=== PATIENT | female | born 1995 | race Caucasian/White ===

== ENCOUNTER 2017-03-17 17:39 | Emergency (ER) | payer BC ==
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
[2017-03-17] MEDS ORDERED: Ketorolac 60 MG/2 ML SDV IM ONE (19:02)
[2017-03-17 21:18] VITALS: BP 136/78
--- NOTE | 2017-03-18 10:01 | US ---
EXAM DATE: 03/17/17 PATIENT'S AGE: 21 Patient: CLARA MORRIS Facility: [place], [place] Site . Site : 1995 Study: US Extremity Venous [id number] 6:32:40 PM Ordering Physician: Doctor Keating Final Report: INDICATION: PAIN BEHIOND LT KNEE DVT VS BAKERS CYST INDICATION: Lower extremity pain and swelling. TECHNIQUE: Ultrasound venous duplex lower left extremity. Compression venous exam was performed using reynolds-scale, color Doppler, and spectral Doppler analysis. COMPARISON: None. FINDINGS: Sonographic imaging demonstrates the left common femoral, deep femoral, superficial femoral, popliteal, posterior tibial and greater saphenous and the contralateral right common femoral veins to be fully compressible with normal color Doppler blood flow. There is no fluid collection identified in the left popliteal fossa. IMPRESSION: No DVT is identified in the left lower extremity. Dictated by Emile Brown MD @ 03/17/2017 7:06:39 PM Dictated by: Emile Brown MD @ 03/17/2017 19:06:53 (Electronic Signature) Report Signed by Proxy. [facility] HOSPITALMarciano
--- NOTE | 2017-03-18 10:04 | CR ---
EXAM DATE: 03/17/17 PATIENT'S AGE: 21 Patient: CLARA MORRIS Facility: [place], [place] Site . Site : 1995 Study: XRay Knee Left [id number]/12/2017 7:02:18 PM Ordering Physician: Doctor Keating Final Report: INDICATION: Knee pain, injury. TECHNIQUE: Knee radiographs 3 views COMPARISON: None FINDINGS: Bones: Alignment is normal. No acute fractures or aggressive osseous lesions seen. Joint spaces: No significant joint effusion is seen. The joint spaces of the medial, lateral, and patellofemoral compartments are unremarkable. Soft tissues: Unremarkable. No radiopaque foreign bodies are noted. IMPRESSION: 1. No acute osseous injuries are identified. Dictated by Cesar Parada MD @ 03/17/2017 7:35:15 PM Dictated by: Cesar Parada MD @ 03/17/2017 19:35:21 (Electronic Signature) Report Signed by Proxy. KATHIE
== END 2017-03-17 19:55 | disposition home or self-care (01) ==
LOC: MW.ED 17:39
DX: M25.562 Pain in left knee (principal); V18.0XXA Pedal cycle driver injured in noncollision transport accident in nontraffic accident, initial encounter
CPT/HCPCS: 73562; 93971; 96372; 99284; J1885; 99282

== ENCOUNTER 2017-10-11 09:47 | Emergency (ER) | payer BC ==
[2017-10-11] MEDS ORDERED: Sodium Chloride 0.9% 2.5 ML Syringe FLUSH PRN (09:58)
[2017-10-11] MEDS ORDERED: Sodium Chloride 0.9% 10 ML Syringe FLUSH PRN (09:58)
--- NOTE | 2017-10-11 10:30 | EDM.PDOC ---
ED HPI GENERAL MEDICAL PROBLEM - General Chief Complaint: CRAB FISHER Problem Stated Complaint: BLEEDING AT 14WKS Time Seen by Provider: 10/11/17 09:49 Source of Information: Reports: Patient History Limitations: Reports: No Limitations - History of Present Illness INITIAL COMMENTS - FREE TEXT/NARRATIVE: History of present illness: []Patient is 14 weeks and has been bleeding since early this morning. When she got up she felt a gush of blood which is abnormal. She states there was no tissue or clots. Patient states she has cramping on the right pelvis that is new. She is followed by Dr. Jasmina Jones has had a ultrasound in this documenting IUP. Patient denies any dizziness lightheadedness fevers, chills or diarrhea. Review of systems: As per history of present illness and below otherwise all systems reviewed and negative. Past medical history: As per history of present illness and as reviewed below otherwise noncontributory. Surgical history: As per history of present illness and as reviewed below otherwise noncontributory. Social history: No reported history of drug or alcohol abuse. Family history: As per history of present illness and as reviewed below otherwise noncontributory. Physical exam: General: Well developed, well nourished in NAD HEENT: Atraumatic, normocephalic, pupils reactive, negative for conjunctival pallor or scleral icterus, mucous membranes moist, throat clear, neck supple, nontender, trachea midline. Lungs: Clear to auscultation, breath sounds equal bilaterally, chest nontender. Heart: S1S2, regular, negative for clicks, rubs, or JVD. Abdomen: Soft, nondistended, nontender. Negative for masses or hepatosplenomegaly. Negative for costovertebral tenderness. Pelvis: Stable nontender. Genitourinary: Deferred. Rectal: Deferred. Extremities: Atraumatic, negative for cords or calf pain. Neurovascular unremarkable. Neuro: Awake, alert, oriented. Cranial nerves II through XII unremarkable. Cerebellum unremarkable. Motor and sensory unremarkable throughout. Exam nonfocal. Diagnostics: []CBC with H&H of . Ultrasound shows a single IUP with gestational age of 15 weeks and 2 days, heart tones 155, normal amniotic fluid volume and suspected central previa, UA negative Therapeutics: [] Impression: []Placenta previa, threatened AB Plan: []Follow-up with Dr. Fortune return if any symptoms worsen or change Definitive disposition and diagnosis as appropriate pending reevaluation and review of above. Pelvic Pain Score (Numeric/FACES): 3 - Related Data Allergies Allergy/AdvReac Type Severity Reaction Status Date / Time No Known Allergies Allergy Verified 10/11/17 10:03 Home Meds: Home Meds . [No Known Home Meds] 03/17/17 [History] Past Medical History - Past Health History Medical/Surgical History: Denies Medical/Surgical History - Infectious Disease History Infectious Disease History: Reports: Chicken Pox Social & Family History - Family History Family Medical History: Noncontributory Cardiac: Reports: Hypertension Endocrine/Metabolic: Reports: Diabetes, type II - Tobacco Use Smoking Status *Q: Never Smoker Years of Tobacco use: 1 Packs/Tins Daily: 0.1 Second Hand Smoke Exposure: No - Alcohol Use Days Per Week of Alcohol Use: 2 Number of Drinks Per Day: 2 Total Drinks Per Week: 4 - Recreational Drug Use Recreational Drug Use: No ED ROS GENERAL - Review of Systems Review Of Systems: See Below (See history of present illness) ED EXAM - Physical Exam Exam: See Below (See history of present illness) Course - Vital Signs Last Recorded V/S: Last Vital Signs Temp 98.4 F 10/11/17 11:27 Pulse 102 H 10/11/17 11:27 Resp 18 10/11/17 11:27 BP 145/87 H 10/11/17 11:27 Pulse Ox 99 10/11/17 11:27 - Orders/Labs/Meds Orders: Active Orders 24 hr Category Date Time Status OB Transvaginal [US] Stat Exams 10/11/17 09:58 Taken UA W/MICROSCOPIC [URIN] Stat Lab 10/11/17 11:24 Ordered Sodium Chloride 0.9% [Saline Flush] Med 10/11/17 09:58 Active 10 ml FLUSH ASDIRECTED PRN Sodium Chloride 0.9% [Saline Flush] Med 10/11/17 09:58 Active 2.5 ml FLUSH ASDIRECTED PRN Saline Lock Insert [OM.PC] Stat Oth 10/11/17 09:58 Ordered Medication Orders Sodium Chloride (Saline Flush) 10 ml FLUSH ASDIRECTED PRN PRN Reason: Keep Vein Open Sodium Chloride (Saline Flush) 2.5 ml FLUSH ASDIRECTED PRN PRN Reason: Keep Vein Open Labs: Laboratory Tests 10/11/17 10/11/17 10/11/17 Range/Units 10:12 10:12 11:24 WBC 11.31 H (4.0-11.0) K/uL RBC 4.25 L (4.30-5.90) M/uL Hgb 11.9 L (12.0-16.0) g/dL Hct 35.5 L (36.0-46.0) % MCV 83.5 (80.0-98.0) fL MCH 28.0 (27.0-32.0) pg MCHC 33.5 (31.0-37.0) g/dL RDW Std Deviation 37.9 (28.0-62.0) fl RDW Coeff of [place] 13 (11.0-15.0) % Plt Count 278 (150-400) K/uL MPV 10.20 (7.40-12.00) fL Neut % (Auto) 68.3 (48.0-80.0) % Lymph % (Auto) 26.3 (16.0-40.0) % [place] % (Auto) 4.2 (0.0-15.0) % Eos % (Auto) 0.9 (0.0-7.0) % Baso % (Auto) 0.3 (0.0-1.5) % Neut # (Auto) 7.7 H (1.4-5.7) K/uL Lymph # (Auto) 3.0 H (0.6-2.4) K/uL [place] # (Auto) 0.5 (0.0-0.8) K/uL Eos # (Auto) 0.1 (0.0-0.7) K/uL Baso # (Auto) 0.0 (0.0-0.1) K/uL Nucleated RBC % 0.0 /100WBC Nucleated RBCs # 0 K/uL Urine Color YELLOW Urine Appearance CLEAR Urine pH 5.5 (5.0-8.0) Ur Specific [place] >= 1.030 (1.001-1.035) Urine Protein NEGATIVE (NEGATIVE) mg/dL Urine Glucose (UA) NEGATIVE (NEGATIVE) mg/dL Urine Ketones NEGATIVE (NEGATIVE) mg/dL Urine Occult Blood MODERATE (NEGATIVE) Urine Nitrite NEGATIVE (NEGATIVE) Urine Bilirubin NEGATIVE (NEGATIVE) Urine Urobilinogen 0.2 (<2.0) EU/dL Ur Leukocyte Esterase NEGATIVE (NEGATIVE) Urine RBC 4-6 (0-2/HPF) Urine WBC 1-3 (0-5/HPF) Ur Epithelial Cells FEW (NONE-FEW) Urine Bacteria FEW (NEGATIVE) Blood Type B POSITIVE Meds: Medications Generic Name Dose Route Start Last Admin Trade Name Freq PRN Reason Stop Dose Admin Sodium Chloride 10 ml 10/11/17 09:58 Saline Flush FLUSH ASDIRECTED PRN Keep Vein Open Sodium Chloride 2.5 ml 10/11/17 09:58 Saline Flush FLUSH ASDIRECTED PRN Keep Vein Open Departure - Departure Time of Disposition: 11:51 Disposition: Home, Self-Care 01 Condition: Good Clinical Impression: Placenta previa antepartum, Vaginal bleeding during - Discharge Information Referrals: PCP,None [Primary Care Provider] - Forms: ED Department Discharge Additional Instructions: The following information is given to patients seen in the emergency department who are being discharged to home. This information is to outline your options for follow-up care. We provide all patients seen in our emergency department with a follow-up referral. The need for follow-up, as well as the timing and circumstances, are variable depending upon the specifics of your emergency department visit. If you don't have a primary care physician on staff, we will provide you with a referral. We always advise you to contact your personal physician following an emergency department visit to inform them of the circumstance of the visit and for follow-up with them and/or the need for any referrals to a consulting specialist. The emergency department will also refer you to a specialist when appropriate. This referral assures that you have the opportunity for follow-up care with a specialist. All of these measure are taken in an effort to provide you with optimal care, which includes your follow-up. Under all circumstances we always encourage you to contact your private physician who remains a resource for coordinating your care. When calling for follow-up care, please make the office aware that this follow-up is from your recent emergency room visit. If for any reason you are refused follow-up, please contact the [facility] Emergency Department at and asked to speak to the emergency department charge nurse. Return if any symptoms worsen or change, follow-up with Dr. Tong MCKINLEY [facility] [address] [place] [id number] - My Orders Last 24 Hours: My Active Orders 10/11/17 09:58 OB Transvaginal [US] Stat Sodium Chloride 0.9% [Saline Flush] 10 ml FLUSH ASDIRECTED PRN Sodium Chloride 0.9% [Saline Flush] 2.5 ml FLUSH ASDIRECTED PRN Saline Lock Insert [OM.PC] Stat 10/11/17 11:24 UA W/MICROSCOPIC [URIN] Stat - Assessment/Plan Last 24 Hours: My Active Orders 10/11/17 09:58 OB Transvaginal [US] Stat Sodium Chloride 0.9% [Saline Flush] 10 ml FLUSH ASDIRECTED PRN Sodium Chloride 0.9% [Saline Flush] 2.5 ml FLUSH ASDIRECTED PRN Saline Lock Insert [OM.PC] Stat 10/11/17 11:24 UA W/MICROSCOPIC [URIN] Stat
[2017-10-11 13:42] VITALS: BP 139/81
--- NOTE | 2017-10-12 14:21 | US ---
EXAM DATE: 10/11/17 PATIENT'S AGE: 22 Patient: CLARA GOODMAN Facility: [place], [place] Site . Site : 1995 Study: US OB Pelvis [id number]/8/2018 10:47:00 AM Ordering Physician: Rodger Clifton Final Report: INDICATION: ABD PAIN/VAGINAL BLEEDING Indication: Abdominal pain/vaginal bleeding. Technique: obstetric ultrasound. Comparison: None. Findings: There is a small amount of fluid in the cervix, with soft tissue covering the internal cervical os. These findings are suspicious for placenta previa. Followup imaging is suggested to assess for fundal migration. The cervix measures 4.7 cm in length. There is no prolapse of parts or funneling identified. Cardiac activity by M-mode ultrasound is 155 beats per minute. A formal anatomic survey was not performed. Subjectively, amniotic fluid volume is within normal limits. Measurements are as follows: Biparietal diameter: 29 millimeters, corresponding to gestational age of 15 weeks, 3 days. Head circumference: 106 millimeters, corresponding to a gestational age of 15 weeks, 1 day. Abdominal circumference: 92 millimeters, corresponding to gestational age of 15 weeks, 3 days. Femur length: 17 millimeters, corresponding to gestational age of 15 weeks, 0 days. The HC/AC ratio is 1.16. The normal range is 1.14 to 1.31. The ultrasound gestational age today is 15 weeks II days, corresponding to an ultrasound EDC of 04/02/2018. Estimated weight is 115 grams (+/-17 grams). This places the fetus at the 90th percentile for LMP. Impression: 1. Single living intrauterine fetus, with an ultrasound gestational age today of 15 weeks, 2 days, corresponding to an ultrasound EDC of 04/02/2018. 2. Subjectively, amniotic fluid volume is within normal limits. 3. Suspected placenta previa. Sonographic and clinical followup are advised to assess for fundal migration. Dictated by Emile Brown MD @ 10/11/2017 11:01:57 AM Dictated by: Emile Brown MD @ 10/11/2017 11:02:13 (Electronic Signature) Report Signed by Proxy. KATHIE
== END 2017-10-11 12:20 | disposition home or self-care (01) ==
LOC: MW.ED 09:47
DX: O20.0 Threatened abortion (principal); O44.11 Complete placenta previa with hemorrhage, first trimester; Z3A.14 14 weeks gestation of pregnancy
CPT/HCPCS: 36415; 76817; 76817-26; 81001; 85025; 86900; 86901; 99283; 99284-25

== ENCOUNTER 2018-03-20 02:40 | Inpatient (IN) | payer OTHER, BC ==
[2018-03-20] MEDS ORDERED: Butorphanol 1 MG/ML SDV IM ONE (04:05)
[2018-03-20] MEDS ORDERED: Methylergonovine 0.2 MG/1 ML Amp IM PRN (05:10)
[2018-03-20] MEDS ORDERED: Misoprostol 200 MCG Tab PO PRN (05:10)
[2018-03-20] MEDS ORDERED: Tranexamic Acid 1,000 MG in Sodium Chloride 0.9% 100 ML IV PRN (05:10)
[2018-03-20] MEDS ORDERED: Sodium Chloride 0.9% 10 ML Syringe FLUSH PRN (05:10)
[2018-03-20] MEDS ORDERED: Lidocaine 1% 50 ML MDV INJECT PRN (05:10)
[2018-03-20] MEDS ORDERED: Nalbuphine 10 MG/1 ML Vial IVPUSH PRN (05:10)
[2018-03-20] MEDS ORDERED: Water For Irrigation,Sterile 1,000 ML Container IRR PRN (05:10)
[2018-03-20] MEDS ORDERED: Sodium Chloride 0.9% 2.5 ML Syringe FLUSH PRN (05:10)
[2018-03-20] MEDS ORDERED: Carboprost Tromethamine 250 MCG/1 ML Amp IM PRN (05:10)
[2018-03-20] MEDS ORDERED: Oxytocin/0.9 % Sodium Chloride 30 UNIT/500 ML BAG IV SCH (05:15)
[2018-03-20] MEDS: Butorphanol 1 MG/ML SDV IVPUSH PRN ×2 (05:27→07:32)
[2018-03-20] MEDS: Lactated Ringers 1,000 ML IV SCH ×2 (05:28→07:22)
[2018-03-20] MEDS ORDERED: fentaNYL 100 MCG/2 ML SDV ONE (08:17)
[2018-03-20] MEDS ORDERED: Ropivacaine HCl/PF 100 ML ONE (08:17)
--- NOTE | 2018-03-20 08:28 | PCM.LDHP ---
L&D History of Present Illness - General Date of Service: 03/20/18 Admit Problem/Dx: Patient Status Order with Admit Dx/Problem 03/20/18 03:05 Patient Status [ADT] Routine 03/20/18 05:14 Patient Status [ADT] Routine Admission Diagnosis/Problem Admission Diagnosis/Problem Source of Information: Patient History Limitations: Reports: No Limitations - History of Present Illness Pain Score: 9 Improves with: Reports: None Worsens with: Reports: None Associated Symptoms: Reports: N - Related Data Allergies/Adverse Reactions: Allergies Allergy/AdvReac Type Severity Reaction Status Date / Time No Known Allergies Allergy Verified 10/11/17 10:03 Home Medications: Home Meds Acetaminophen [Tylenol Extra Strength] 1,000 mg PO Q6H PRN 03/08/18 [History] Vit #76/Iron,Carb/Fa [Pnv 29-1 Tablet] 1 tab PO DAILY 03/08/18 [History ] Past Medical History - Past Health History Medical/Surgical History: Denies Medical/Surgical History Respiratory History: Reports: Asthma CARDIOLOGY MANAGER History: Reports: - Infectious Disease History Infectious Disease History: Reports: Chicken Pox Social & Family History - Family History Family Medical History: Noncontributory Cardiac: Reports: Hypertension Endocrine/Metabolic: Reports: Diabetes, type II - Tobacco Use Used Tobacco, but Quit: No Second Hand Smoke Exposure: No - Recreational Drug Use Recreational Drug Use: No H&P Review of Systems - Review of Systems: Review Of Systems: See Below General: Reports: No Symptoms HEENT: Reports: No Symptoms Pulmonary: Reports: No Symptoms Cardiovascular: Reports: No Symptoms Gastrointestinal: Reports: No Symptoms Genitourinary: Reports: No Symptoms Musculoskeletal: Reports: No Symptoms Skin: Reports: No Symptoms Psychiatric: Reports: No Symptoms Neurological: Reports: No Symptoms Hematologic/Lymphatic: Reports: No Symptoms Immunologic: Reports: No Symptoms L&D Exam - Exam Exam: See Below - Vital Signs Weight: 128.82 kg - OB Specific Contraction Intensity: Moderate Movement: Active Heart Tones: Present Presentation: Vertex - Marie Score Marie Score Cervix Position: Anterior Marie Score Consistency: Soft Marie Score Effacement: >80% Marie Score Dilation: > 5 cm Marie Score 's Station: -1 ,0 Marie Score Total: 12 - Exam General: Alert, Oriented HEENT: PERRLA, Conjunctiva Clear, EACs Clear, EOMI, Hearing Intact, Mucosa Moist & Hoyt, Nares Patent, Normal Nasal Septum, Posterior Pharynx Clear, TMs Clear Neck: Supple, Trachea Midline Lungs: Clear to Auscultation, Normal Respiratory Effort Cardiovascular: Regular Rate, Regular Rhythm GI/Abdominal Exam: Normal Bowel Sounds, Soft, Non-Tender, No Organomegaly, No Distention, No Abnormal Bruit, No Mass, Pelvis Stable Rectal Exam: Normal Exam, Normal Rectal Tone Genitourinary: Normal external exam, Normal bimanual exam, Normal speculum exam Back Exam: Normal Inspection, Full Range of Motion Extremities: Normal Inspection, Normal Range of Motion, Non-Tender, No Pedal Edema, Normal Capillary Refill Skin: Warm, Dry, Intact Neurological: Cranial Nerves Intact, Reflexes Equal Bilateral Psychiatric: Alert, Normal Affect, Normal Mood - Patient Data Lab Results Last 24 hrs: Laboratory Results - last 24 hr 03/20/18 03/20/18 Range/Units 05:27 05:27 WBC 15.67 H (4.0-11.0) K/uL RBC 4.55 (4.30-5.90) M/uL Hgb 12.5 (12.0-16.0) g/dL Hct 37.5 (36.0-46.0) % MCV 82.4 (80.0-98.0) fL MCH 27.5 (27.0-32.0) pg MCHC 33.3 (31.0-37.0) g/dL RDW Std Deviation 41.8 (28.0-62.0) fl RDW Coeff of Roshni 14 (11.0-15.0) % Plt Count 278 (150-400) K/uL MPV 11.30 (7.40-12.00) fL Nucleated RBC % 0.0 /100WBC Nucleated RBCs # 0 K/uL Blood Type B POSITIVE Antibody Screen NEGATIVE Result Diagrams: 03/20/18 05:27 Problem List Initiated/Reviewed/Updated: Yes Orders Last 24hrs: Active Orders 24 hr Category Date Time Status Patient Status [ADT] Routine ADT 03/20/18 03:05 Active Patient Status [ADT] Routine ADT 03/20/18 05:14 Active May Shower [RC] ASDIRECTED Care 03/20/18 05:14 Active Notify Provider [RC] PRN Care 03/20/18 05:14 Active Up ad Kalie [RC] ASDIRECTED Care 03/20/18 03:05 Active Vital Signs [RC] PER UNIT ROUTINE Care 03/20/18 03:05 Active Vital Signs [RC] PER UNIT ROUTINE Care 03/20/18 05:14 Active Butorphanol [Stadol] Med 03/20/18 05:10 Active 1 mg IVPUSH Q1H PRN Carboprost Tromethamine [Hemabate DS] Med 03/20/18 05:10 Active 250 mcg IM ASDIRECTED PRN Lactated Ringers [Ringers, Lactated] 1,000 ml Med 03/20/18 05:15 Active IV ASDIRECTED Lidocaine 1% [Xylocaine 1%] Med 03/20/18 05:10 Active 50 ml INJECT ONETIME PRN Methylergonovine [Methergine] Med 03/20/18 05:10 Active 0.2 mg IM ASDIRECTED PRN Nalbuphine [Nubain] Med 03/20/18 05:10 Active 10 mg IVPUSH Q1H PRN Oxytocin/0.9 % Sodium Chloride [Oxytocin 30 Unit/500 ML Med 03/20/18 05:15 Active -NS] 30 unit in 500 ml IV TITRATE Sodium Chloride 0.9% [Saline Flush] Med 03/20/18 05:10 Active 10 ml FLUSH ASDIRECTED PRN Sodium Chloride 0.9% [Saline Flush] Med 03/20/18 05:10 Active 2.5 ml FLUSH ASDIRECTED PRN Tranexamic Acid [Cyklokapron] 1,000 mg Med 03/20/18 05:10 Active Sodium Chloride 0.9% [Normal Saline] 100 ml IV ONETIME Water For Irrigation,Sterile [Sterile Water for Med 03/20/18 05:10 Active Irrigation] 1,000 ml IRR ASDIRECTED PRN miSOPROStol [Cytotec] Med 03/20/18 05:10 Active 200 mcg PO ONETIME PRN Scalp Electrode [WOMSER] Per Unit Routine Oth 03/20/18 05:14 Ordered Peripheral IV Insertion Adult [OM.PC] Routine Oth 03/20/18 05:14 Ordered Resuscitation Status Routine Resus Stat 03/20/18 03:05 Ordered Medication Orders Butorphanol Tartrate (Stadol) 1 mg IVPUSH Q1H PRN PRN Reason: Pain Last Admin: 03/20/18 07:32 Dose: 1 mg Admin: 03/20/18 05:27 Dose: 1 mg Carboprost Tromethamine (Hemabate Ds) 250 mcg IM ASDIRECTED PRN PRN Reason: Post Hemorrhage Tranexamic Acid 1,000 mg/ (Sodium Chloride) 110 mls @ 660 mls/hr IV ONETIME PRN PRN Reason: Bleeding Lactated Ringer's (Ringers, Lactated) 1,000 mls @ 150 mls/hr IV ASDIRECTED [place] Last Admin: 03/20/18 07:22 Dose: 500 mls/hr Infusion: 03/20/18 06:29 Dose: 999 mls/hr Admin: 03/20/18 05:28 Dose: 999 mls/hr Oxytocin/Sodium Chloride (Oxytocin 30 Unit/500 Ml-Ns) 30 unit in 500 mls @ 500 mls/hr IV TITRATE [facility] Lidocaine HCl (Xylocaine 1%) 50 ml INJECT ONETIME PRN PRN Reason: Laceration repair Methylergonovine Maleate (Methergine) 0.2 mg IM ASDIRECTED PRN PRN Reason: Post Hemorrhage Misoprostol (Cytotec) 200 mcg PO ONETIME PRN PRN Reason: Post Hemorrhage Nalbuphine HCl (Nubain) 10 mg IVPUSH Q1H PRN PRN Reason: Pain (severe 7-10) Sodium Chloride (Saline Flush) 10 ml FLUSH ASDIRECTED PRN PRN Reason: Keep Vein Open Sodium Chloride (Saline Flush) 2.5 ml FLUSH ASDIRECTED PRN PRN Reason: Keep Vein Open Sterile Water (Sterile Water For Irrigation) 1,000 ml IRR ASDIRECTED PRN PRN Reason: delivery Assessment/Plan Comment:: IUP term in active labor.
--- NOTE | 2018-03-20 08:40 | PCM.PREANE ---
Preanesthetic Assessment - Anesthesia/Transfusion/Family Hx Anesthesia History: Prior Anesthesia Without Reaction Family History of Anesthesia Reaction: No Transfusion History: No Prior Transfusion(s) - Review of Systems General: No Symptoms Pulmonary: No Symptoms Cardiovascular: No Symptoms Gastrointestinal: No Symptoms Neurological: No Symptoms - Physical Assessment NPO Status Date: 03/20/18 NPO Status Time: 01:00 Height: 1.57 m Weight: 128.82 kg ASA Class: 2 Mental Status: Alert & Oriented x3 Dentition: Reports: Normal Dentition - Lab Values: Laboratory Last Values WBC 15.67 K/uL (4.0-11.0) H 03/20/18 05:27 RBC 4.55 M/uL (4.30-5.90) 03/20/18 05:27 Hgb 12.5 g/dL (12.0-16.0) 03/20/18 05:27 Hct 37.5 % (36.0-46.0) 03/20/18 05:27 MCV 82.4 fL (80.0-98.0) 03/20/18 05:27 MCH 27.5 pg (27.0-32.0) 03/20/18 05:27 MCHC 33.3 g/dL (31.0-37.0) 03/20/18 05:27 RDW Std Deviation 41.8 fl (28.0-62.0) 03/20/18 05:27 RDW Coeff of Roshni 14 % (11.0-15.0) 03/20/18 05:27 Plt Count 278 K/uL (150-400) 03/20/18 05:27 MPV 11.30 fL (7.40-12.00) 03/20/18 05:27 Nucleated RBC % 0.0 /100WBC 03/20/18 05:27 Nucleated RBCs # 0 K/uL 03/20/18 05:27 Blood Type B POSITIVE 03/20/18 05:27 Antibody Screen NEGATIVE 03/20/18 05:27 - Allergies Allergies/Adverse Reactions: Allergies Allergy/AdvReac Type Severity Reaction Status Date / Time No Known Allergies Allergy Verified 10/11/17 10:03 - Acknowledgements Anesthesia Type Planned: Epidural Pt an Appropriate Candidate for the Planned Anesthesia: Yes Alternatives and Risks of Anesthesia Discussed w Pt/Guardian: Yes Pt/Guardian Understands and Agrees with Anesthesia Plan: Yes PreAnesthesia Questionnaire - Past Health History Medical/Surgical History: Denies Medical/Surgical History Respiratory History: Reports: Asthma [employer] History: Reports: - Infectious Disease History Infectious Disease History: Reports: Chicken Pox - SUBSTANCE USE Tobacco Use Within Last Twelve Months: No Second Hand Smoke Exposure: No Recreational Drug Use History: No - HOME MEDS Home Medications: Home Meds Acetaminophen [Tylenol Extra Strength] 1,000 mg PO Q6H PRN 03/08/18 [History] Vit #76/Iron,Carb/Fa [Pnv 29-1 Tablet] 1 tab PO DAILY 03/08/18 [History ] - CURRENT (IN HOUSE) MEDS Current Meds: Current Medications Butorphanol Tartrate (Stadol) 1 mg IVPUSH Q1H PRN PRN Reason: Pain Last Admin: 03/20/18 07:32 Dose: 1 mg Carboprost Tromethamine (Hemabate Ds) 250 mcg IM ASDIRECTED PRN PRN Reason: Post Hemorrhage Tranexamic Acid 1,000 mg/ (Sodium Chloride) 110 mls @ 660 mls/hr IV ONETIME PRN PRN Reason: Bleeding Lactated Ringer's (Ringers, Lactated) 1,000 mls @ 150 mls/hr IV ASDIRECTED [place] Last Admin: 03/20/18 07:22 Dose: 500 mls/hr Oxytocin/Sodium Chloride (Oxytocin 30 Unit/500 Ml-Ns) 30 unit in 500 mls @ 500 mls/hr IV TITRATE [place] Lidocaine HCl (Xylocaine 1%) 50 ml INJECT ONETIME PRN PRN Reason: Laceration repair Methylergonovine Maleate (Methergine) 0.2 mg IM ASDIRECTED PRN PRN Reason: Post Hemorrhage Misoprostol (Cytotec) 200 mcg PO ONETIME PRN PRN Reason: Post Hemorrhage Nalbuphine HCl (Nubain) 10 mg IVPUSH Q1H PRN PRN Reason: Pain (severe 7-10) Sodium Chloride (Saline Flush) 10 ml FLUSH ASDIRECTED PRN PRN Reason: Keep Vein Open Sodium Chloride (Saline Flush) 2.5 ml FLUSH ASDIRECTED PRN PRN Reason: Keep Vein Open Sterile Water (Sterile Water For Irrigation) 1,000 ml IRR ASDIRECTED PRN PRN Reason: delivery Discontinued Medications Butorphanol Tartrate (Stadol) 1 mg IM ONETIME ONE Stop: 03/20/18 04:06 Last Admin: 03/20/18 04:15 Dose: 1 mg Fentanyl (Sublimaze) Confirm Administered Dose 100 mcg .ROUTE .STK-MED ONE Stop: 03/20/18 08:18 Ropivacaine (Naropin 0.2%) Confirm Administered Dose 100 mls @ as directed .ROUTE .STK-MED ONE Stop: 03/20/18 08:18
--- NOTE | 2018-03-20 08:45 | PCM.PRNOTE ---
- Free Text/Narrative Note: Anes Note Patietn requests epidural for L&D. Sitting position. Chloroprep to lumbar area. Sterile fenestrated drape applied. Sterile technique. Level L3-L4, midline approach. Local 1% lido, epidural space easily achieved single attempt using ELMA technique. ELMA note at 5 cm. Epidural cath threaded 5 cm with ease. Sterile dressing applied. Test dose negative. Loading dose 10 cc 0.2% ropivicaine with 1 mcg/cc fentanyl in slow divided doses. Pump started with same solution at 8 cc hr with 6 cc q 20 min prn bolus. Brad Ace API PRODUCT MANAGER Time with patient 0825 to 0900
[2018-03-20] MEDS ORDERED: oxyCODONE 5 MG Tab PO PRN (10:06)
[2018-03-20] MEDS ORDERED: Benzocaine/Menthol 20%-0.5% Spray 78 GM Cannister TOP PRN (10:06)
[2018-03-20] MEDS ORDERED: Docusate Sodium 100 MG Cap PO PRN (10:06)
[2018-03-20] MEDS ORDERED: Ibuprofen 400 MG Tab PO PRN (10:06)
[2018-03-20] MEDS ORDERED: Bisacodyl 10 MG Supp RECTAL PRN (10:06)
[2018-03-20] MEDS ORDERED: Lanolin 100% Cream 7 GM Tube TOP PRN (10:06)
[2018-03-20] MEDS ORDERED: Acetaminophen 500 MG Tab PO PRN (10:06)
[2018-03-20] MEDS ORDERED: Witch Hazel Medicated Pads 40/Jar TOP PRN (10:06)
--- NOTE | 2018-03-20 12:40 | OR ---
SURGEON: Justin Fortune MD DATE OF PROCEDURE: 03/20/2018 Ms. Saha is 22. She is para 1-0-0-1, she is followed in our clinic primarily by me. She is term. She is admitted early of March 20 in active labor. Her GBS status is negative. At the time of admission, she was 5 cm complete vertex, -1 with intact bag of water, ruptured her membrane at 8:00 in the morning and it was clear fluid. At that time, she was 6 cm complete vertex and zero station. She had epidural anesthesia for labor analgesia. heart rate was category I. The patient continued to progress at the end when she became complete she have deceleration due to descend and she was able to accomplish a normal spontaneous vaginal delivery of a male fetus. Nuchal cord x1 was noted. The fetus was suctioned and dried and cried, and the score reported to be 7 and 9. The weight is not available. The placenta delivered spontaneous, complete, and intact without any problem and there was no need for episiotomy. There was no perineal or labial laceration. Estimated blood loss was 250 to 300 mL. There was no complication in this labor and . WENDY / INGA /[id number]
[2018-03-20] MEDS: Ibuprofen 800 MG Tab PO PRN (15:00)
[2018-03-20] MEDS: Acetaminophen 500 MG Tab PO PRN (17:08)
[2018-03-21] MEDS: Ibuprofen 800 MG Tab PO PRN (00:07)
--- NOTE | 2018-03-21 05:37 | PCM.POSTAN ---
POST ANESTHESIA ASSESSMENT - RESPIRATORY Respiratory Status: Respiratory Rate WNL - CARDIOVASCULAR CV Status: Pulse Rate WNL - GASTROINTESTINAL GI Status: No Symptoms - POST OP HYDRATION Hydration Status: Adequate & Stable
--- NOTE | 2018-03-21 05:38 | PCM48HPAN ---
Post Anesthesia Note - EVALUATION WITHIN 48HRS OF ANESTHETIC Vital Signs in Normal Range: Yes Patient Participated in Evaluation: Yes Respiratory Function Stable: Yes Airway Patent: Yes Cardiovascular Function Stable: Yes Hydration Status Stable: Yes Pain Control Satisfactory: Yes Nausea and Vomiting Control Satisfactory: Yes Mental Status Recovered: Yes Resp Rate: 16
[2018-03-21 07:57] VITALS: BP 129/85
[2018-03-21] MEDS: Acetaminophen 500 MG Tab PO PRN (10:16)
--- NOTE | 2018-03-21 11:19 | PCM.DCSUM1 ---
Discharge Summary - Hospital Course Diagnosis: Stroke: No - Discharge Data Discharge Date: 03/21/18 Discharge Disposition: Home, Self-Care 01 Condition: Good - Patient Instructions Diet: Usual Diet as Tolerated Activity: As Tolerated Driving: Do Not Drive Showering/Bathing: May Shower Notify Provider of: Fever, Increased Pain, Nausea and/or Vomiting - Discharge Plan Home Medications: Home Meds Acetaminophen [Tylenol Extra Strength] 1,000 mg PO Q6H PRN 03/08/18 [History] Vit #76/Iron,Carb/Fa [Pnv 29-1 Tablet] 1 tab PO DAILY 03/08/18 [History ] - General Info Date of Service: 03/21/18 Functional Status: Reports: Pain Controlled - Review of Systems General: Reports: No Symptoms HEENT: Reports: No Symptoms Pulmonary: Reports: No Symptoms Cardiovascular: Reports: No Symptoms Gastrointestinal: Reports: No Symptoms Genitourinary: Reports: No Symptoms Musculoskeletal: Reports: No Symptoms Skin: Reports: No Symptoms Neurological: Reports: No Symptoms Psychiatric: Reports: No Symptoms - Patient Data Vitals - Most Recent: Last Vital Signs Temp 36.6 C 03/21/18 07:40 Pulse 79 03/21/18 07:40 Resp 18 03/21/18 07:40 BP 129/85 03/21/18 07:40 Pulse Ox 99 03/21/18 07:40 Weight - Most Recent: 128.82 kg Lab Results - Last 24 hrs: Laboratory Results - last 24 hr 03/21/18 Range/Units 06:00 Hgb 11.0 L (12.0-16.0) g/dL Hct 34.3 L (36.0-46.0) % Med Orders - Current: Current Medications Acetaminophen (Tylenol Extra Strength) 500 mg PO Q4H PRN PRN Reason: Pain Acetaminophen (Tylenol Extra Strength) 1,000 mg PO Q4H PRN PRN Reason: Pain Last Admin: 03/21/18 10:16 Dose: 1,000 mg Benzocaine/Menthol (Dermoplast Pain Relief 20%-0.5% [place]) 78 gm TOP ASDIRECTED PRN PRN Reason: Perineal Comfort Measure Bisacodyl (Dulcolax) 10 mg RECTAL ONETIME PRN PRN Reason: Constipation Butorphanol Tartrate (Stadol) 1 mg IVPUSH Q1H PRN PRN Reason: Pain Last Admin: 03/20/18 07:32 Dose: 1 mg Carboprost Tromethamine (Hemabate Ds) 250 mcg IM ASDIRECTED PRN PRN Reason: Post Hemorrhage Docusate Sodium (Colace) 100 mg PO BID PRN PRN Reason: Constipation Emollient Ointment (Lansinoh Hpa) 0 gm TOP ASDIRECTED PRN PRN Reason: Sore Nipples Last Admin: 03/20/18 17:11 Dose: 1 tube Tranexamic Acid 1,000 mg/ (Sodium Chloride) 110 mls @ 660 mls/hr IV ONETIME PRN PRN Reason: Bleeding Lactated Ringer's (Ringers, Lactated) 1,000 mls @ 150 mls/hr IV ASDIRECTED [place] Last Admin: 03/20/18 07:22 Dose: 500 mls/hr Oxytocin/Sodium Chloride (Oxytocin 30 Unit/500 Ml-Ns) 30 unit in 500 mls @ 500 mls/hr IV TITRATE [facility] Last Admin: 03/20/18 10:00 Dose: 999 mls/hr Ibuprofen (Motrin) 400 mg PO Q4H PRN PRN Reason: Pain Ibuprofen (Motrin) 800 mg PO Q6H PRN PRN Reason: Pain Last Admin: 03/21/18 00:07 Dose: 800 mg Lidocaine HCl (Xylocaine 1%) 50 ml INJECT ONETIME PRN PRN Reason: Laceration repair Methylergonovine Maleate (Methergine) 0.2 mg IM ASDIRECTED PRN PRN Reason: Post Hemorrhage Misoprostol (Cytotec) 200 mcg PO ONETIME PRN PRN Reason: Post Hemorrhage Nalbuphine HCl (Nubain) 10 mg IVPUSH Q1H PRN PRN Reason: Pain (severe 7-10) Oxycodone HCl (Oxycodone) 5 mg PO Q2H PRN PRN Reason: Pain Sodium Chloride (Saline Flush) 10 ml FLUSH ASDIRECTED PRN PRN Reason: Keep Vein Open Sodium Chloride (Saline Flush) 2.5 ml FLUSH ASDIRECTED PRN PRN Reason: Keep Vein Open Sterile Water (Sterile Water For Irrigation) 1,000 ml IRR ASDIRECTED PRN PRN Reason: delivery Witch Genet (Tucks) 1 pad TOP ASDIRECTED PRN PRN Reason: comfort care Discontinued Medications Butorphanol Tartrate (Stadol) 1 mg IM ONETIME ONE Stop: 03/20/18 04:06 Last Admin: 03/20/18 04:15 Dose: 1 mg Fentanyl (Sublimaze) Confirm Administered Dose 100 mcg .ROUTE .STK-MED ONE Stop: 03/20/18 08:18 Last Admin: 03/20/18 09:25 Dose: Not Given Ropivacaine (Naropin 0.2%) Confirm Administered Dose 100 mls @ as directed .ROUTE .STK-MED ONE Stop: 03/20/18 08:18 Last Admin: 03/20/18 09:25 Dose: Not Given - Exam General: Reports: Alert, Oriented HEENT: Reports: Pupils Equal, Pupils Reactive, EOMI, Mucous Membr. Moist/Jet Neck: Reports: Supple Lungs: Reports: Clear to Auscultation, Normal Respiratory Effort Cardiovascular: Reports: Regular Rate, Regular Rhythm GI/Abdominal Exam: Normal Bowel Sounds, Soft, Non-Tender, No Organomegaly, No Distention, No Abnormal Bruit, No Mass, Pelvis Stable (Female) Exam: Normal External Exam, Normal Speculum Exam, Normal Bimanual Exam Rectal (Female) Exam: Normal Exam, Normal Rectal Tone Back Exam: Reports: Normal Inspection, Full Range of Motion Extremities: Normal Inspection, Normal Range of Motion, Non-Tender, No Pedal Edema, Normal Capillary Refill Skin: Reports: Warm, Dry, Intact Wound/Incisions: Reports: Healing Well Neurological: Reports: No New Focal Deficit Psy/Mental Status: Reports: Alert, Normal Affect, Normal Mood
== END 2018-03-21 12:20 | disposition home or self-care (01) | DRG 775 ==
LOC: MW.OBCHECK 02:40 → MW.OB 02:43 → MW.OBCHECK 05:14 → MW.OB 05:14 → OBSVTOIN 09:59 → MW.OB 14:09
PROVIDERS: ADMIT Obstetrics & Gynecology; ATTEND Obstetrics & Gynecology
PROC: 10E0XZZ Delivery of Products of Conception, External Approach (ICD-10-PCS; principal; 2018-03-20)
PROC: 00HU33Z Insertion of Infusion Device into Spinal Canal, Percutaneous Approach (ICD-10-PCS; 2018-03-20)
DX: O69.1XX0 Labor and delivery complicated by cord around neck, with compression, not applicable or unspecified (principal); Z3A.37 37 weeks gestation of pregnancy; Z37.0 Single live birth
CPT/HCPCS: 36415; 51702; 59025; 59409; 85014; 85018; 85027; 86850; 86900; 86901; A9270-GY; J0595; J2590; J2795; J3010; J7120

== ENCOUNTER 2019-02-05 11:41 | Emergency (ER) | payer OTHER ==
--- NOTE | 2019-02-05 12:06 | EDM.PDOC ---
ED HPI GENERAL MEDICAL PROBLEM - General Chief Complaint: ENT Problem Stated Complaint: CHILLS, EAR PAIN Time Seen by Provider: 02/05/19 11:52 Source of Information: Reports: Patient History Limitations: Reports: No Limitations - History of Present Illness INITIAL COMMENTS - FREE TEXT/NARRATIVE: HISTORY AND PHYSICAL: History of present illness: Patient is a 23-year-old female who presents to the emergency room with complaints of bilateral ear pain that radiates into the side of her neck 1 week. She also complains of an infrequent productive cough 1 month. She has had subjective fever and chills. Patient denies any neck pain/stiffness, headache, change in vision, syncope or near syncope. Denies any chest pain, back pain, shortness of breath. Denies any abdominal pain, nausea, vomiting, diarrhea, constipation or dysuria. Patient has been eating and drinking appropriately. Review of systems: As per history of present illness and below otherwise all systems reviewed and negative. Past medical history: As per history of present illness and as reviewed below otherwise noncontributory. Surgical history: As per history of present illness and as reviewed below otherwise noncontributory. Social history: See social history for further information Family history: As per history of present illness and as reviewed below otherwise noncontributory. Physical exam: General: Well-developed and well-nourished 23-year-old female. Alert and oriented. Nontoxic appearing and in no acute distress. HEENT: Atraumatic, normocephalic, pupils equal and reactive bilaterally, negative for conjunctival pallor or scleral icterus, mucous membranes moist, TMs erythematous with dull light reflex and no bulging bilaterally,, throat clear, neck supple, nontender, trachea midline. No drooling or trismus noted. No meningeal signs. No hot potato voice noted. Lungs: Clear to auscultation, breath sounds equal bilaterally, chest nontender. Heart: S1S2, regular rate and rhythm without overt murmur Abdomen: Soft, nondistended, nontender. Skin: Intact, warm, dry. No lesions or rashes noted. Extremities: Atraumatic, moves all extremities per self without difficulty or deficits, negative for cords or calf pain. Neurovascular unremarkable. Neuro: Awake, alert, oriented. Cranial nerves II through XII unremarkable. Cerebellum unremarkable. Motor and sensory unremarkable throughout. Exam nonfocal. Notes: Besides the bilateral ear infection her physical examination is normal. It is noted that she is tachycardic and has elevated blood pressure. I did inform the patient of this and as long discussed further diagnostics with possible IV fluids. She declines. She states she has fluids in her vehicle and would like to be discharged to home with just the treatment of the ear infection. We discussed the need for follow-up primary care. Supportive care measures were reviewed and discussed. Voices understanding and is agreeable to plan of care. Denies any further questions or concerns at this time. Diagnostics: Declines Therapeutics: Declines Prescription: Augmentin Phenergan w/ Codeine Impression: Otitis media, bilateral Plan: 1. Take your antibiotic as prescribed. Please use Tylenol and/or Ibuprofen as needed for pain and fever management. 2. Get plenty of Rest. Encourage fluids to prevent dehydration. 3. Please follow up with your primary care provider. Return to the ED as needed as discussed. Definitive disposition and diagnosis as appropriate pending reevaluation and review of above. 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 ED EXAM, ENT - Physical Exam Exam: See Below (See dictation) Course - Vital Signs Last Recorded V/S: Last Vital Signs Temp 98.0 F 02/05/19 11:48 Pulse 122 H 02/05/19 11:48 Resp 20 02/05/19 11:48 BP 165/105 H 02/05/19 11:48 Pulse Ox 96 02/05/19 11:48 Departure - Departure Time of Disposition: 12:39 Disposition: Home, Self-Care 01 Clinical Impression: Otitis media Qualifiers: Otitis media type: suppurative Chronicity: acute Laterality: bilateral Recurrence: non-recurrent Spontaneous tympanic membrane rupture: without spontaneous rupture Qualified Code(s): H66.003 - Acute suppurative otitis media without spontaneous rupture of ear drum, bilateral - Discharge Information Prescriptions: Codeine/Promethazine [Phenergan with Codeine] 1 dose PO Q4HR PRN #118 ml PRN Reason: Pain Amoxicillin/Potassium Clav [Augmentin 875-125 Tablet] 1 each PO BID 10 Days #20 tablet Instructions: Otitis Media, Adult Referrals: PCP,Unknown [Primary Care Provider] - Forms: ED Department Discharge Additional Instructions: The following information is given to patients seen in the emergency department who are being discharged to home. This information is to outline your options for follow-up care. We provide all patients seen in our emergency department with a follow-up referral. The need for follow-up, as well as the timing and circumstances, are variable depending upon the specifics of your emergency department visit. If you don't have a primary care physician on staff, we will provide you with a referral. We always advise you to contact your personal physician following an emergency department visit to inform them of the circumstance of the visit and for follow-up with them and/or the need for any referrals to a consulting specialist. The emergency department will also refer you to a specialist when appropriate. This referral assures that you have the opportunity for follow-up care with a specialist. All of these measure are taken in an effort to provide you with optimal care, which includes your follow-up. Under all circumstances we always encourage you to contact your private physician who remains a resource for coordinating your care. When calling for follow-up care, please make the office aware that this follow-up is from your recent emergency room visit. If for any reason you are refused follow-up, please contact the [facility] Emergency Department at and asked to speak to the emergency department charge nurse. [facility] [address] [place] [address] [facility] [address] [place] [id number] 1. Take your antibiotic as prescribed. Please use Tylenol and/or Ibuprofen as needed for pain and fever management. 2. Get plenty of Rest. Encourage fluids to prevent dehydration. 3. Please follow up with your primary care provider. Return to the ED as needed as discussed.
[2019-02-05 12:38] VITALS: BP 149/102; PULSE 116
== END 2019-02-05 12:42 | disposition home or self-care (01) ==
LOC: MW.ED 11:41
DX: H66.003 Acute suppurative otitis media without spontaneous rupture of ear drum, bilateral (principal)
CPT/HCPCS: 99282

== ENCOUNTER 2019-09-25 13:32 | Emergency (ER) | payer OTHER ==
--- NOTE | 2019-09-25 14:12 | EDM.PDOC ---
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 Patient states she was early in her and was able to take a pill in order to induce the . Patient states she had initial cramping and bleeding that over the past 1 week has subsided. Patient states when she woke up this morning she had lower abdominal cramping and states that it feels like is radiating to her vagina. Patient denies any vaginal discharge. Patient states she has not had any sexual intercourse since the . Patient denies any abdominal surgeries. Patient denies any associated symptoms. Patient states that she does see Ramila López and Dr. Fortune for womens care but has not seen either recently. Patient denies fever, chills, chest pain, shortness of breath, or cough. Denies headache, neck stiff ness, change in vision, syncope, or near syncope. Denies nausea, vomiting, abdominal pain, diarrhea, constipation, or dysuria. Has not noted any blood in urine or stool. Patient has been eating and drinking appropriately. Review of systems: As per history of present illness and below otherwise all systems reviewed and negative. Past medical history: As per history of present illness and as reviewed below otherwise noncontributory. Surgical history: As per history of present illness and as reviewed below otherwise noncontributory. Social history: See social history for further information Family history: As per history of present illness and as reviewed below otherwise noncontributory. Physical exam: General: Patient is alert, oriented, and in no acute distress. Patient laying comfortably on exam table. HEENT: Atraumatic, normocephalic, pupils equal and reactive bilaterally, negative for conjunctival pallor or scleral icterus, mucous membranes moist, TMs normal bilaterally, throat clear, neck supple, nontender, trachea midline. No drooling or trismus noted. No meningeal signs. No hot potato voice noted. Lungs: Clear to auscultation, breath sounds equal bilaterally, chest nontender. Heart: S1S2, regular rate and rhythm without overt murmur Abdomen: Exam of abdomen is limited due to body habitus. Soft, nondistended, mild-moderate tender of the generalized lower abdomen. Negative for masses or hepatosplenomegaly. Negative for costovertebral tenderness. Pelvis: Stable nontender. Genitourinary: Social Worker Clinical at bedside KB. External genitalia is grossly unremarkable. There is a moderate amount of reynolds discharge in the vaginal vault. Uterus is approximately 6 weeks in size and tender to palpation with pain with movement of the cervix. Rectal: Deferred. Skin: Intact, warm, dry. No lesions or rashes noted. Extremities: Atraumatic, negative for cords or calf pain. Neurovascular unremarkable. Neuro: Awake, alert, oriented. Cranial nerves II through XII unremarkable. Cerebellum unremarkable. Motor and sensory unremarkable throughout. Exam nonfocal. Notes: I did speak DRILL PRESS OPERATOR FOR METAL provider circulation clerk Dr. Fortune, and thoroughly discussed patient' s case. He recommends starting patient on Flagyl 500 3 times daily for 10 days and to follow-up with him in his clinic. Discussed importance for follow-up with Dr. Fortune. Voices understanding and is agreeable to plan of care. Denies any further questions or concerns at this time. Diagnostics: CBC, CMP, UA, lipase, transvaginal ultrasound, gonorrhea and chlamydia, affirm, vaginal culture, serum hcg quant, abd/pelvic CT Therapeutics: None Prescription: Flagyl Impression: Pelvic pain, unspecified Bacterial vaginosis Plan: 1. Take medication as prescribed. You can alternate ibuprofen and Tylenol as directed for pain and discomfort. 2. Do not drink any alcohol with prescribed antibiotic. 3. Follow-up with Dr. Fortune, OBGYN, in his clinic. Call tomorrow morning to establish an appointment time. The number has been provided above for you. 4. Return to the ED as needed and as discussed. Definitive disposition and diagnosis as appropriate pending reevaluation and review of above. lower abd/pelvis Pain Score (Numeric/FACES): 8 - Related Data Allergies Allergy/AdvReac Type Severity Reaction Status Date / Time No Known Allergies Allergy Verified 09/25/19 13:38 Home Meds: Home Meds Acetaminophen [Tylenol Extra Strength] 1,000 mg PO Q6H PRN 03/08/18 [History] Past Medical History - Past Health History Medical/Surgical History: Denies Medical/Surgical History Respiratory History: Reports: Asthma DRILL PRESS OPERATOR FOR METAL History: Reports: , Therapeutic - Infectious Disease History Infectious Disease History: Reports: Chicken Pox Social & Family History - Family History Family Medical History: Noncontributory Cardiac: Reports: Hypertension Endocrine/Metabolic: Reports: Diabetes, type II - Tobacco Use Smoking Status *Q: Current Every Day Smoker Years of Tobacco use: 1 Packs/Tins Daily: 0.5 - Caffeine Use Caffeine Use: Reports: Coffee - Recreational Drug Use Recreational Drug Use: No ED ROS GENERAL - Review of Systems Review Of Systems: Comprehensive ROS is negative, except as noted in HPI. ED EXAM, GENERAL - Physical Exam Exam: See Below (See dictation) Course - Vital Signs Last Recorded V/S: Last Vital Signs Temp 96.7 F L 09/25/19 13:39 Pulse 87 09/25/19 16:08 Resp 16 09/25/19 16:08 BP 170/90 H 09/25/19 16:08 Pulse Ox 100 09/25/19 16:08 - Orders/Labs/Meds Orders: Active Orders 24 hr Category Date Time Status CHLAMYDIA AND GONORRHEA BY TMA Stat Lab 09/25/19 16:40 Received CULTURE GENITAL [RM] Stat Lab 09/25/19 16:40 Received Labs: Laboratory Tests 09/25/19 09/25/19 09/25/19 Range/Units 13:44 14:38 14:38 WBC 11.76 H (4.0-11.0) K/uL RBC 4.62 (4.30-5.90) M/uL Hgb 13.1 (12.0-16.0) g/dL Hct 40.9 (36.0-46.0) % MCV 88.5 (80.0-98.0) fL MCH 28.4 (27.0-32.0) pg MCHC 32.0 (31.0-37.0) g/dL RDW Std Deviation 41.8 (28.0-62.0) fl RDW Coeff of Roshni 13 (11.0-15.0) % Plt Count 338 (150-400) K/uL MPV 10.60 (7.40-12.00) fL Neut % (Auto) 68.8 (48.0-80.0) % Lymph % (Auto) 25.8 (16.0-40.0) % Pickens % (Auto) 3.9 (0.0-15.0) % Eos % (Auto) 1.2 (0.0-7.0) % Baso % (Auto) 0.3 (0.0-1.5) % Neut # (Auto) 8.1 H (1.4-5.7) K/uL Lymph # (Auto) 3.0 H (0.6-2.4) K/uL Pickens # (Auto) 0.5 (0.0-0.8) K/uL Eos # (Auto) 0.1 (0.0-0.7) K/uL Baso # (Auto) 0.0 (0.0-0.1) K/uL Nucleated RBC % 0.0 /100WBC Nucleated RBCs # 0 K/uL Sodium 139 (136-145) mmol/L Potassium 4.1 (3.5-5.1) mmol/L Chloride 103 (98-107) mmol/L Carbon Dioxide 27.8 (21.0-32.0) mmol/L BUN 10 (7.0-18.0) mg/dL Creatinine 0.8 (0.6-1.0) mg/dL Est Cr Clr Drug Dosing 88.93 mL/min Estimated GFR (MDRD) > 60.0 ml/min Glucose 102 (74-106) mg/dL Calcium 9.0 (8.5-10.1) mg/dL Total Bilirubin 0.2 (0.2-1.0) mg/dL AST 11 L (15-37) IU/L ALT 26 (14-63) IU/L Alkaline Phosphatase 60 (46-116) U/L Total Protein 7.7 (6.4-8.2) g/dL Albumin 3.7 (3.4-5.0) g/dL Globulin 4.0 (2.6-4.0) g/dL Albumin/Globulin Ratio 0.9 (0.9-1.6) Lipase 121 (73-393) U/L HCG, Quant mIU/mL Urine Color YELLOW Urine Appearance CLEAR Urine pH 6.5 (5.0-8.0) Ur Specific [place] 1.020 (1.001-1.035) Urine Protein NEGATIVE (NEGATIVE) mg/dL Urine Glucose (UA) NEGATIVE (NEGATIVE) mg/dL Urine Ketones NEGATIVE (NEGATIVE) mg/dL Urine Occult Blood NEGATIVE (NEGATIVE) Urine Nitrite NEGATIVE (NEGATIVE) Urine Bilirubin NEGATIVE (NEGATIVE) Urine Urobilinogen 0.2 (<2.0) EU/dL Ur Leukocyte Esterase NEGATIVE (NEGATIVE) Lissy species DNA (NEGATIVE) Gardnerella DNA Probe (NEGATIVE) Trichomonas DNA Probe (NEGATIVE) 09/25/19 09/25/19 Range/Units 14:38 16:40 WBC (4.0-11.0) K/uL RBC (4.30-5.90) M/uL Hgb (12.0-16.0) g/dL Hct (36.0-46.0) % MCV (80.0-98.0) fL MCH (27.0-32.0) pg MCHC (31.0-37.0) g/dL RDW Std Deviation (28.0-62.0) fl RDW Coeff of Roshni (11.0-15.0) % Plt Count (150-400) K/uL MPV (7.40-12.00) fL Neut % (Auto) (48.0-80.0) % Lymph % (Auto) (16.0-40.0) % Pickens % (Auto) (0.0-15.0) % Eos % (Auto) (0.0-7.0) % Baso % (Auto) (0.0-1.5) % Neut # (Auto) (1.4-5.7) K/uL Lymph # (Auto) (0.6-2.4) K/uL Pickens # (Auto) (0.0-0.8) K/uL Eos # (Auto) (0.0-0.7) K/uL Baso # (Auto) (0.0-0.1) K/uL Nucleated RBC % /100WBC Nucleated RBCs # K/uL Sodium (136-145) mmol/L Potassium (3.5-5.1) mmol/L Chloride (98-107) mmol/L Carbon Dioxide (21.0-32.0) mmol/L BUN (7.0-18.0) mg/dL Creatinine (0.6-1.0) mg/dL Est Cr Clr Drug Dosing mL/min Estimated GFR (MDRD) ml/min Glucose (74-106) mg/dL Calcium (8.5-10.1) mg/dL Total Bilirubin (0.2-1.0) mg/dL AST (15-37) IU/L ALT (14-63) IU/L Alkaline Phosphatase (46-116) U/L Total Protein (6.4-8.2) g/dL Albumin (3.4-5.0) g/dL Globulin (2.6-4.0) g/dL Albumin/Globulin Ratio (0.9-1.6) Lipase (73-393) U/L HCG, Quant 11.0 mIU/mL Urine Color Urine Appearance Urine pH (5.0-8.0) Ur Specific [place] (1.001-1.035) Urine Protein (NEGATIVE) mg/dL Urine Glucose (UA) (NEGATIVE) mg/dL Urine Ketones (NEGATIVE) mg/dL Urine Occult Blood (NEGATIVE) Urine Nitrite (NEGATIVE) Urine Bilirubin (NEGATIVE) Urine Urobilinogen (<2.0) EU/dL Ur Leukocyte Esterase (NEGATIVE) Lissy species DNA NEGATIVE (NEGATIVE) Gardnerella DNA Probe POSITIVE H (NEGATIVE) Trichomonas DNA Probe NEGATIVE (NEGATIVE) Meds: Medications Discontinued Medications Generic Name Dose Route Start Last Admin Trade Name Janq PRN Reason Stop Dose Admin Iopamidol 100 ml 09/25/19 17:17 09/25/19 17:18 Isovue-370 (76%) IVPUSH 09/25/19 17:18 100 ml ONETIME ONE Administration Departure - Departure Time of Disposition: 17:59 Disposition: Home, Self-Care 01 Clinical Impression: Pelvic pain, Bacterial vaginosis - Discharge Information Referrals: Denae Jane NP [Primary Care Provider] - Forms: ED Department Discharge Additional Instructions: The following information is given to patients seen in the emergency department who are being discharged to home. This information is to outline your options for follow-up care. We provide all patients seen in our emergency department with a follow-up referral. The need for follow-up, as well as the timing and circumstances, are variable depending upon the specifics of your emergency department visit. If you don't have a primary care physician on staff, we will provide you with a referral. We always advise you to contact your personal physician following an emergency department visit to inform them of the circumstance of the visit and for follow-up with them and/or the need for any referrals to a consulting specialist. The emergency department will also refer you to a specialist when appropriate. This referral assures that you have the opportunity for follow-up care with a specialist. All of these measure are taken in an effort to provide you with optimal care, which includes your follow-up. Under all circumstances we always encourage you to contact your private physician who remains a resource for coordinating your care. When calling for follow-up care, please make the office aware that this follow-up is from your recent emergency room visit. If for any reason you are refused follow-up, please contact the [facility] Emergency Department at and asked to speak to the emergency department charge nurse. [facility], Dr. Fortune [address] [place], [place] [id number] [address] [address] 1. Take medication as prescribed. You can alternate ibuprofen and Tylenol as directed for pain and discomfort. 2. Do not drink any alcohol with prescribed antibiotic. 3. Follow-up with STEVEN Osorio, in his clinic. Call tomorrow morning to establish an appointment time. The number has been provided above for you. 4. Return to the ED as needed and as discussed. Sepsis Event Note - Evaluation Sepsis Screening Result: No Definite Risk - Focused Exam Vital Signs: Vital Signs Temp Pulse Resp BP Pulse Ox 09/25/19 16:08 87 16 170/90 H 100 09/25/19 13:39 96.7 F L 75 17 190/133 H 98 Date Exam was Performed: 09/25/19 Time Exam was Performed: 17:55 - My Orders Last 24 Hours: My Active Orders 09/25/19 16:40 CHLAMYDIA AND GONORRHEA BY TMA Stat CULTURE GENITAL [RM] Stat - Assessment/Plan Last 24 Hours: My Active Orders 09/25/19 16:40 CHLAMYDIA AND GONORRHEA BY TMA Stat CULTURE GENITAL [RM] Stat
[2019-09-25 15:07] LABS: BLOOD UREA NITROGEN,BUN 10 mg/dL (7.0-18.0); CARBON DIOXIDE,CO2 27.8 mmol/L (21.0-32.0); CHLORIDE,CL 103 mmol/L (98-107); GLUCOSE RANDOM 102 mg/dL (74-106); LIPASE 121 U/L (73-393); POTASSIUM,K 4.1 mmol/L (3.5-5.1); SODIUM,NA 139 mmol/L (136-145)
--- NOTE | 2019-09-25 16:20 | US ---
INDICATION: Acute abdominal pain. Elective 2 weeks ago. TECHNIQUE: Ultrasound pelvis transvaginal for better assessment or to better visualize the endometrium. Real-time sonographic images with spectral and color Doppler imaging of the ovaries were obtained. COMPARISON: None FINDINGS: Uterus: 8.3 x 4.0 cm. Normal echotexture of the myometrium. No masses. Endometrium: Transvaginal imaging was performed to better evaluate the endometrium. Endometrial thickness measures 7 mm. Mild endometrial fluid. Ovaries not visualized due to body habitus and bowel gas. Cul-de-sac: Pelvic free fluid is noted. IMPRESSION: 1. Free pelvic fluid of uncertain etiology. 2. Mild endometrial fluid. 3. Endometrial thickness is within normal limits. Dictated by Michoacano Corona MD @ Sep 25 2019 4:12PM Signed by Dr. Michoacano Corona @ Sep 25 2019 4:19PM
[2019-09-25] MEDS ORDERED: Iopamidol 755 Mg/ML 100 ML Bottle IVPUSH ONE (17:17)
--- NOTE | 2019-09-25 17:47 | CT ---
INDICATION: Lower abdominal pain for 2 weeks status post elective . COMPARISON: 09/25/2019 ultrasound. TECHNIQUE: CT abdomen and pelvis with IV contrast. 100 cc of Isovue-370. FINDINGS: Imaged lung bases are unremarkable. The liver, gallbladder, spleen, pancreas, adrenal glands and kidneys are unremarkable. Abdominal aorta is normal in caliber. Urinary bladder is unremarkable. Uterus is present. Trace free pelvic fluid. No free air is identified. The appendix is normal in caliber. No evidence of bowel obstruction or inflammation. No lymphadenopathy in the abdomen or pelvis. Bones are unremarkable for age. Impression: No specific findings to account for patient`s symptoms. Please note that all CT scans at this facility use dose modulation, iterative reconstruction, and/or weight-based dosing when appropriate to reduce radiation dose to as low as reasonably achievable. Dictated by Michoacano Corona MD @ Sep 25 2019 5:40PM Signed by Dr. Michoacano Corona @ Sep 25 2019 5:45PM
[2019-09-25 18:16] VITALS: BP 147/108; PULSE 78
== END 2019-09-25 18:16 | disposition home or self-care (01) ==
LOC: MW.ED 13:32
DX: N76.0 Acute vaginitis (principal); B96.89 Other specified bacterial agents as the cause of diseases classified elsewhere; F17.210 Nicotine dependence, cigarettes, uncomplicated; E11.9 Type 2 diabetes mellitus without complications; I10 Essential (primary) hypertension
CPT/HCPCS: 36415; 74177; 76830; 80053; 81003; 83690; 84702; 85025; 87070; 87480; 87491; 87510; 87591; 87660; 99284; Q9967; 99283